=== PATIENT | female | born 1990 | race African-American/Black ===

== ENCOUNTER 2022-02-13 09:05 | Emergency (ER) | payer SELFPAY | END 2022-02-13 11:35 | disposition home or self-care (01) | LOC: EDSEX 09:05 → JD.ED 09:05 | DX: F41.9 Anxiety disorder, unspecified (principal); Z76.0 Encounter for issue of repeat prescription; I10 Essential (primary) hypertension; Z86.16 Personal history of COVID-19 | CPT/HCPCS: 99281; 99283 ==